=== PATIENT | male | born 1935 | race Caucasian/White ===

== ENCOUNTER 2020-05-24 08:01 | Emergency (ER) | payer OTHER, BC ==
[~2020-05-24] VITALS: Ht 177.8 cm; Wt 77.1 kg
[2020-05-24 08:11] VITALS: Ht 177.8 cm; Wt 77.1 kg
[2020-05-24 10:04] VITALS: BP 139/93
== END 2020-05-24 10:04 | disposition home or self-care (01) ==
LOC: ED 08:01
DX: S30.0XXA Contusion of lower back and pelvis, initial encounter (principal); M25.532 Pain in left wrist; I10 Essential (primary) hypertension; M19.90 Unspecified osteoarthritis, unspecified site; I46.9 Cardiac arrest, cause unspecified; Z90.89 Acquired absence of other organs; Z88.0 Allergy status to penicillin; Z88.1 Allergy status to other antibiotic agents; Z91.018 Allergy to other foods; X58.XXXA Exposure to other specified factors, initial encounter; Y93.89 Activity, other specified; Y92.89 Other specified places as the place of occurrence of the external cause; Y99.8 Other external cause status